=== PATIENT | female | born 1950 | race African-American/Black ===

== ENCOUNTER 2019-01-04 17:55 | Emergency (ER) | payer OTHER, MEDICARE ==
[2019-01-04] MEDS ORDERED: ASPIRIN 81 MG TABLET, CHEWABLE PO ONE (19:14)
[2019-01-04 20:03] LABS: ABSOLUTE EOSINOPHILS # (AUTO) 0.1 10^3/uL (0.0-0.6); ABSOLUTE LYMPHOCYTES (AUTO) 0.6 10^3/uL (0.5-4.7); ABSOLUTE MONOCYTES (AUTO) 0.3 10^3/uL (0.1-1.4); ABSOLUTE NEUT (AUTO) 1.6 10^3/uL (1.7-8.2); BASOPHILS % (AUTO) 0.7 % (0-2); EOSINOPHILS % (AUTO) 4.3 % (0-6); HEMATOCRIT 28.6 % (36.0-47.0); HEMOGLOBIN 9.8 g/dL (12.0-15.5); LYMPHOCYTES % (AUTO) 22.6 % (13-45); MEAN CORPUSCULAR HEMOGLOBIN 32.5 pg (27.0-33.4); MEAN CORPUSCULAR HGB CONC 34.1 g/dL (32.0-36.0); MEAN CORPUSCULAR VOLUME 95 fl (80-97); MONOCYTES % (AUTO) 11.9 % (3-13); PLATELET COUNT 105 10^3/uL (150-450); SEGMENTED NEUTROPHILS % (AUTO) 60.5 % (42-78); TOTAL CELLS COUNTED % (AUTO) 100 %; WHITE BLOOD COUNT 2.6 10^3/uL (4.0-10.5)
--- NOTE | 2019-01-04 20:05 | ER Document Report ---
Entered by AGUSTÍN LAURENT SCRIBE 01/04/192002 Acting as scribe for:LILIYA LABOY DO ED Medical Screen (RME) - General Chief Complaint: Leg Swelling Stated Complaint: LEG SWELLING Time Seen by Provider: 01/04/19 19:07 Mode of Arrival: Wheelchair Information source: Patient Notes: Patient is a 68 year old female presenting to the emergency department complaining of lower extremity swelling onset approximately 1 week ago. Patient states she has a history of Hepatitis C and subsequent liver failure and fluid overload. Patient also complains of a cough and intermittent chest pain. States she has had ascites removed from her abdomen in the past. Denies any his tory of congestive heart failure. I have greeted and performed a rapid initial assessment of this patient. A comprehensive ED assessment and evaluation of the patient, analysis of test results and completion of the medical decision making process will be conducted by additional ED providers. GENERAL: Alert, interacts well. No acute distress. HEAD: Normocephalic, Atraumatic. EYES: Pupils equal, round, and reactive to light. EOMI. ENT: Oral mucosa moist, tongue midline. NECK: Full range of motion. Supple. Trachea midline. LUNGS: Clear to auscultation bilaterally, no wheezes, rales, or rhonchi. No respiratory distress. HEART: Regular rate and rhythm. 3 out of 6 systolic murmur. No gallops or rubs. ABDOMEN: Soft, non-tender.Stretch sánchez on abdomen, no caput medusa. Non- distended. Bowel sounds present in all 4 quadrants. EXTREMITIES: Moves all four extremities spontaneously. 2+ pitting edema to the levels of the knee. PSYCH: Normal affect, normal mood. TRAVEL OUTSIDE OF THE [place] IN LAST 30 DAYS: No - Related Data Allergies/Adverse Reactions: cephalexin [From Keflex] Allergy (Verified 01/04/19 17:58) furosemide [From Lasix] Allergy (Verified 01/04/19 17:58) Past Medical History - Social History Chew tobacco use (# tins/day): No Frequency of alcohol use: None Drug Abuse: None Neurological Medical History: Reports: Hx Seizures Renal/ Medical History: Denies: Hx Peritoneal Dialysis Past Surgical History: Reports: Hx Breast Surgery - reduction, Hx Hysterectomy Physical Exam - Vital signs Vitals: Temp Pulse Resp BP Pulse Ox 99.5 F 93 16 144/65 H 98 01/04/19 18:01 01/04/19 18:01 01/04/19 18:01 01/04/19 18:01 01/04/19 18:01 Course - Vital Signs Vital signs: Temp Pulse Resp BP Pulse Ox 99.5 F 93 16 144/65 H 98 01/04/19 18:01 01/04/19 18:01 01/04/19 18:01 01/04/19 18:01 01/04/19 18:01 - Laboratory Result Diagrams: 01/04/19 19:47 01/04/19 19:47 I personally performed the services described in the documentation, reviewed and edited the documentation which was dictated to the scribe in my presence, and it accurately records my words and actions.
[2019-01-04 20:09] LABS: INTERNATIONAL RATION (INR) 1.06; PARTIAL THROMBOPLASTIN TIME 34.9 SEC (23.5-35.8); PROTHROMBIN TIME 14.3 SEC (11.4-15.4)
[2019-01-04 20:20] LABS: ALANINE AMINOTRANSFERASE 26 U/L (9-52); ALBUMIN 3.7 g/dL (3.5-5.0); ALKALINE PHOSPHATASE 139 U/L (38-126); ANION GAP 9 (5-19); ASPARTATE AMINO TRANSFERASE 61 U/L (14-36); BILIRUBIN,DIRECT 0.3 mg/dL (0.0-0.4); BILIRUBIN,TOTAL 0.7 mg/dL (0.2-1.3); BLOOD UREA NITROGEN 15 mg/dL (7-20); CALCIUM 9.7 mg/dL (8.4-10.2); CARBON DIOXIDE 27 mmol/L (22-30); CHLORIDE 105 mmol/L (98-107); CREATINE KINASE 115 U/L (30-135); GLUCOSE 195 mg/dL (75-110); POTASSIUM 4.2 mmol/L (3.6-5.0); SODIUM 140.9 mmol/L (137-145)
[2019-01-04 20:32] LABS: CREATINE KINASE MB 0.52 ng/mL (<4.55); NT PRO BNP 336 pg/mL (5-900)
[2019-01-04 20:39] LABS: TROPONIN I < 0.012 ng/mL
--- NOTE | 2019-01-04 21:00 | RADIOLOGY REPORT (SQ) ---
XR CHEST 1 VIEW HISTORY: leg edema, mild SOB. COMPARISON: None. FINDINGS: Query cardiomegaly with mild pulmonary vascular congestion. No large pleural effusions or discernible pneumothorax. The osseous structures are intact. IMPRESSION: Pulmonary edema without pleural effusions.
[2019-01-04] MEDS ORDERED: FUROSEMIDE 40 MG TABLET PO ONE (22:27)
[2019-01-04] MEDS ORDERED: RISPERIDONE 1 MG TABLET PO ONE (22:27)
--- NOTE | 2019-01-04 22:34 | ER Document Report ---
ED General - General Chief Complaint: Leg Swelling Stated Complaint: LEG SWELLING Time Seen by Provider: 01/04/19 19:07 Mode of Arrival: Wheelchair Notes: Patient is a 68-year-old female with a past medical history of bilateral lower extremity edema, hepatitis C, report of possible schizophrenia who presents with his sister for multiple concerns. The history is provided by the patient and her sister is quite different from the triage assessment. They report that the primary reason they have come to the emergency department tonight is because the patient has run out of her risperidone 1 mg twice daily. The patient was recently removed from a nursing facility outside of [facility] as the patient was being treated and kept at that facility apparently due to mental incompetence secondary to schizophrenia, a diagnosis that both the patient and sister deny. Apparently the patient requested that her sister come get her released from the nursing facility and this just occurred several days ago. The sister brought the patient back here to [place] and the patient has not yet been able to established care. Sister states that "when they discharged her from the nursing facility they told me to keep her on her medications and she would be okay so that is why brought her in tonight because I did not want her to run out of these medications". Her sister also relates a concern that the patient has had some swelling in her legs although notes that it is not new or different relative to when she first picked her up from the nursing facility. Patient does take furosemide 20 mg twice daily. No missed doses. The patient does not have any history of CHF or chronic kidney disease. Has a history of hepatitis C but denies any history of liver cirrhosis or failure. Patient denies any chest pain to me although it was noted in triage that she had complained of chest pain. When I confront the patient about this she denies the claim again stating she does not have chest pain. She also denies any significant shortness of breath although states that sometimes when she exerts herself she "becomes winded". Denies any current symptoms at the time of my assessment. TRAVEL OUTSIDE OF THE [place] IN LAST 30 DAYS: No - Related Data Allergies/Adverse Reactions: cephalexin [From Keflex] Allergy (Verified 01/04/19 17:58) Past Medical History - General Information source: Patient - Social History Smoking Status: Never Smoker Chew tobacco use (# tins/day): No Frequency of alcohol use: None Drug Abuse: None Lives with: Spouse/Significant other Family History: Reviewed & Not Pertinent Patient has suicidal ideation: No Patient has homicidal ideation: No Neurological Medical History: Reports: Hx Seizures Renal/ Medical History: Denies: Hx Peritoneal Dialysis Past Surgical History: Reports: Hx Breast Surgery - reduction, Hx Hysterectomy Review of Systems - Review of Systems Notes: Constitutional: Negative for fever. HENT: Negative for sore throat. Eyes: Negative for visual changes. Cardiovascular: Negative for chest pain. Respiratory: Positive for shortness of breath. Gastrointestinal: Negative for abdominal pain, vomiting or diarrhea. Genitourinary: Negative for dysuria. Musculoskeletal: Positive for bilateral lower extremity edema Skin: Negative for rash. Neurological: Negative for headaches, weakness or numbness. 10 point ROS negative except as marked above and in HPI. Physical Exam - Vital signs Vitals: Temp Pulse Resp BP Pulse Ox 99.5 F 93 16 144/65 H 98 01/04/19 18:01 01/04/19 18:01 01/04/19 18:01 01/04/19 18:01 01/04/19 18:01 Interpretation: Hypertensive Notes: PHYSICAL EXAMINATION: GENERAL: Well-appearing, well-nourished and in no acute distress. HEAD: Atraumatic, normocephalic. EYES: Pupils equal round and reactive to light, extraocular movements intact, sclera anicteric, conjunctiva are normal. ENT: nares patent, oropharynx clear without exudates. Moist mucous membranes. NECK: Normal range of motion, supple without lymphadenopathy LUNGS: Breath sounds clear to auscultation bilaterally and equal. No wheezes rales or rhonchi. HEART: Regular rate and rhythm without murmurs ABDOMEN: Soft, nontender, normoactive bowel sounds. No guarding, no rebound. No masses appreciated. EXTREMITIES: Normal range of motion, 1+ pitting edema in the bilateral lower extremities that is equal and symmetric. No cyanosis. NEUROLOGICAL: No focal neurological deficits. Moves all extremities spontaneously and on command. PSYCH: Normal mood, normal affect. SKIN: Warm, Dry, normal turgor, no rashes or lesions noted. Course - Re-evaluation Re-evalutation: 01/05/19 03:38 Patient presents with a primary concern of needing medication refills. The patient and her sister at the bedside are clear to state that this is the main reason they came to the ER is because they do not yet have a primary care physician and are concerned that she has run out of both the lorazepam and risperidone. They report that the shortness of breath and lower extremity edema complaints are chronic and they thought they had mentioned them while they are here. Of note this is quite different from the triage assessment. I did spend an extensive period of time with the patient and her family going over everything that was discussed both in triage and refocusing on the initial visit purpose. I have discontinued the patient's lorazepam as she is above 65 years of age and I do not believe should be to be taken daily, scheduled benzodiazepines. I have continued her risperidone although given the family's report that she was allegedly diagnosed with schizophrenia within the past several years and had a skeptical of this diagnosis vertically that this would be an atypical age for this to be diagnosed. Patient had no history of schizophrenia as a younger individual. In regards the patient's lower extremity edema and trace pulmonary edema on chest x-ray, she is saturating 100% on room air. No tachycardia, no tachypnea. BNP is normal. I have placed the patient in compression stockings and have doubled her Lasix to 40 mill grams twice daily for the next 1 week. No indication for hospitalization at this point. Patient adamantly denies chest pain to me. At this time will discharge with return precautions and follow-up recommendations. Verbal discharge instructions given a the bedside and opportunity for questions given. Medication warnings reviewed. Patient is in agreement with this plan and has verbalized understanding of return precautions and the need for primary care follow-up in the next 24-72 hours. - Vital Signs Vital signs: Temp Pulse Resp BP Pulse Ox 99.5 F 93 16 136/65 H 97 01/04/19 18:01 01/04/19 18:01 01/04/19 23:01 01/04/19 23:01 01/04/19 23:01 - Laboratory Result Diagrams: 01/04/19 19:47 01/04/19 19:47 Laboratory results interpreted by me: 01/04/19 01/04/19 01/04/19 19:47 19:47 19:47 WBC 2.6 L RBC 3.00 L Hgb 9.8 L Hct 28.6 L RDW 16.0 H Plt Count 105 L Absolute Neutrophils 1.6 L Est GFR (Non-Af Amer) 54 L Glucose 195 H AST 61 H Alkaline Phosphatase 139 H Ammonia 45.6 H - Diagnostic Test Radiology reviewed: Image reviewed, Reports reviewed Radiology results interpreted by me: 01/05/19 03:40 Chest x-ray: Trace pulmonary edema bilaterally. - EKG Interpretation by Me Additional EKG results interpreted by me: 01/05/19 03:40 Sinus rhythm, rate 81. No ST elevations or depressions. QTC is 474. Discharge - Discharge Clinical Impression: Bilateral lower extremity edema, Medication refill Pulmonary edema Qualifiers: Chronicity: acute Qualified Code(s): J81.0 - Acute pulmonary edema Condition: Good Disposition: HOME, SELF-CARE Additional Instructions: Please continue your medications as prescribed with the exception of Lasix which I would like you to increase to 40 mg twice daily for the next 1 week. Please then return to Lasix 20 mg twice daily as previously prescribed. You need to establish care with a primary care physician as we discussed. Please return to the emergency permit immediately if you develop worsening of the swelling in your legs, worsening shortness of breath, chest discomfort, pass out, or have any other symptoms that are worrisome to you. Prescriptions: Furosemide [Lasix 20 mg Tablet] 40 mg PO BID #28 tablet Risperidone [Risperdal] 1 mg PO BID #60 tablet
[2019-01-04 23:06] VITALS: BP 136/65
--- NOTE | 2019-01-05 01:18 | EKG REPORT ---
SEVERITY:- NORMAL ECG - SINUS RHYTHM : Confirmed by: Mera Curtis MD 05-Jan-2019 01:17:44
== END 2019-01-04 23:35 | disposition home or self-care (01) ==
LOC: ER 17:55
DX: Z76.0 Encounter for issue of repeat prescription (principal); J81.0 Acute pulmonary edema; Z79.899 Other long term (current) drug therapy
CPT/HCPCS: 36415; 71045; 80053; 82140; 82550; 82553; 83880; 84484; 85025; 85610; 85730; 93005; 93010; 99284

== ENCOUNTER 2019-01-11 15:21 | Emergency (ER) | payer OTHER, MEDICARE ==
--- NOTE | 2019-01-11 16:48 | ER Document Report ---
ED Medical Screen (RME) - General Chief Complaint: Swelling of Lower Extremity Stated Complaint: SLURRED SPEECH Time Seen by Provider: 01/11/19 16:37 Notes: Patient is a 68-year-old female that presents to the emergency department for chief complaint of slurred speech, facial droop and leg swelling. Patient reports that the slurred speech and facial droop occurred about a week ago, and has been somewhat progressively worse since that time. ROS: Other than noted above, the 12 point review of systems was reviewed with the patient and were negative, all pertinent findings are included in the HPI. PHYSICAL EXAMINATION: Vital signs reviewed. GENERAL: Elderly female, in no apparent distress at this time HEAD: Atraumatic, normocephalic. EYES: Pupils equal round extraocular movements intact, conjunctiva are normal. ENT: Nares patent NECK: Normal range of motion CV: Heart regular rate and rhythm LUNGS: No respiratory distress Musculoskeletal: Good ROM NEUROLOGICAL: Slurred speech, slight left-sided facial droop, and decreased sensation on the left side of the face compared to the right. PSYCH: Normal mood, normal affect. MDM: Patient seen and examined for rapid initial assessment. Vital signs reviewed. A comprehensive ED assessment and evaluation of the patient, analysis of test results and completion of the medical decision making process will be conducted by additional ED providers. *Note is created using voice recognition software and may contain spelling, syntax or grammatical errors. TRAVEL OUTSIDE OF THE [place] IN LAST 30 DAYS: No - Related Data Allergies/Adverse Reactions: cephalexin [From Keflex] Allergy (Verified 01/04/19 17:58) Past Medical History - Social History Frequency of alcohol use: None Drug Abuse: None - Past Medical History Cardiac Medical History: Reports: Hx Hypercholesterolemia Neurological Medical History: Reports: Hx Seizures Renal/ Medical History: Denies: Hx Peritoneal Dialysis Past Surgical History: Reports: Hx Breast Surgery - reduction, Hx Hysterectomy, Hx Orthopedic Surgery - ankle Physical Exam - Vital signs Vitals: Temp Pulse Resp BP Pulse Ox 98.7 F 88 20 161/73 H 96 01/11/19 15:37 01/11/19 15:37 01/11/19 15:37 01/11/19 15:37 01/11/19 15:37 Course - Vital Signs Vital signs: Temp Pulse Resp BP Pulse Ox 98.7 F 88 20 161/73 H 96 01/11/19 15:37 01/11/19 15:37 01/11/19 15:37 01/11/19 15:37 01/11/19 15:37
[2019-01-11 17:48] LABS: ABSOLUTE EOSINOPHILS # (AUTO) 0.1 10^3/uL (0.0-0.6); ABSOLUTE LYMPHOCYTES (AUTO) 0.6 10^3/uL (0.5-4.7); ABSOLUTE MONOCYTES (AUTO) 0.4 10^3/uL (0.1-1.4); BASOPHILS % (AUTO) 0.7 % (0-2); EOSINOPHILS % (AUTO) 4.7 % (0-6); HEMATOCRIT 27.8 % (36.0-47.0); HEMOGLOBIN 9.4 g/dL (12.0-15.5); LYMPHOCYTES % (AUTO) 19.3 % (13-45); MEAN CORPUSCULAR HEMOGLOBIN 32.9 pg (27.0-33.4); MEAN CORPUSCULAR VOLUME 97 fl (80-97); MONOCYTES % (AUTO) 12.4 % (3-13); PLATELET COUNT 103 10^3/uL (150-450); RED BLOOD COUNT 2.87 10^6/uL (3.72-5.28); RED CELL DISTRIBUTION WIDTH 16.3 % (11.5-14.0); SEGMENTED NEUTROPHILS % (AUTO) 62.9 % (42-78); TOTAL CELLS COUNTED % (AUTO) 100 %; WHITE BLOOD COUNT 3.1 10^3/uL (4.0-10.5)
--- NOTE | 2019-01-11 17:48 | RADIOLOGY REPORT (SQ) ---
EXAM DESCRIPTION: CHEST SINGLE VIEW COMPLETED DATE/TIME: 01/11/2019 5:39 pm REASON FOR STUDY: shortness of breath COMPARISON: 01/04/2018 EXAM PARAMETERS: NUMBER OF VIEWS: One view. TECHNIQUE: Single frontal radiographic view of the chest acquired. RADIATION DOSE: NA LIMITATIONS: None. FINDINGS: LUNGS AND PLEURA: Lungs are hyperaerated. Linear atelectasis versus scarring of the left lingula. No focal consolidation, pleural effusion, or pneumothorax. MEDIASTINUM AND HILAR STRUCTURES: No masses. Contour normal. HEART AND VASCULAR STRUCTURES: Heart normal in size. Central pulmonary vasculature is accentuated du e to low lung volumes. BONES: No acute findings. HARDWARE: None in the chest. OTHER: No other significant finding. IMPRESSION: NO ACUTE RADIOGRAPHIC FINDING IN THE CHEST. TECHNICAL DOCUMENTATION: JOB ID: [id number] [employer]- All Rights Reserved Reading location - IP/workstation name: [email or web address]
[2019-01-11 18:05] LABS: ALANINE AMINOTRANSFERASE 24 U/L (9-52); ALBUMIN 3.6 g/dL (3.5-5.0); ALKALINE PHOSPHATASE 126 U/L (38-126); ANION GAP 6 (5-19); ASPARTATE AMINO TRANSFERASE 61 U/L (14-36); BILIRUBIN,DIRECT 0.2 mg/dL (0.0-0.4); BILIRUBIN,TOTAL 0.8 mg/dL (0.2-1.3); BLOOD UREA NITROGEN 17 mg/dL (7-20); CALCIUM 9.6 mg/dL (8.4-10.2); CARBON DIOXIDE 27 mmol/L (22-30); CHLORIDE 107 mmol/L (98-107); GLUCOSE 199 mg/dL (75-110); POTASSIUM 4.2 mmol/L (3.6-5.0); SODIUM 139.5 mmol/L (137-145); TOTAL PROTEIN 8.1 g/dL (6.3-8.2)
--- NOTE | 2019-01-11 18:07 | RADIOLOGY REPORT (SQ) ---
EXAM DESCRIPTION: CT HEAD WITHOUT COMPLETED DATE/TIME: 01/11/2019 5:56 pm REASON FOR STUDY: slurred speech, facial droop on left COMPARISON: None. TECHNIQUE: Axial images acquired through the brain without intravenous contrast. Images reviewed wi th bone, brain and subdural windows. Additional sagittal and coronal reconstructions were generated. Images stored on PACS. All CT scanners at this facility use dose modulation, iterative reconstruction, and/or weight based d osing when appropriate to reduce radiation dose to as low as reasonably achievable (ALARA). [facility]: Dose Right [facility]: CareDose [facility]: Dose Right [facility]: Teradose 4D [facility]: Smart Ideaxis RADIATION DOSE: CT Rad equipment meets quality standard of care and radiation dose reduction techniq ues were employed. CTDIvol: 53.2 mGy. DLP: 991 mGy-cm. mGy. LIMITATIONS: None. FINDINGS: VENTRICLES: Normal size and contour. CEREBRUM: No masses. No hemorrhage. No midline shift. No evidence for acute infarction. Normal gra y/white matter differentiation. No areas of low density in the white matter. Physiologic calcificati ons of the basal ganglia. CEREBELLUM: No masses. No hemorrhage. No alteration of density. No evidence for acute infarction. EXTRAAXIAL SPACES: No fluid collections. No masses. ORBITS AND GLOBE: No intra- or extraconal masses. Normal contour of globe without masses. CALVARIUM: No fracture. PARANASAL SINUSES: Mucoperiosteal thickening of the left maxillary sinus. SOFT TISSUES: No mass or hematoma. OTHER: No other significant finding. IMPRESSION: 1. No acute intracranial findings. 2. Paranasal sinus disease. EVIDENCE OF ACUTE STROKE: NO. COMMENT: Quality ID # [id number]: Final reports with documentation of one or more dose reduction techniques (e.g., Automated exposure control, adjustment of the mA and/or kV according to patient size, use of iterative reconstruction technique) TECHNICAL DOCUMENTATION: JOB ID: [id number] [email or web address] All Rights Reserved Reading location - IP/workstation name: [email or web address]
[2019-01-11 18:18] LABS: NT PRO BNP 402 pg/mL (5-900)
[2019-01-11 18:25] LABS: TROPONIN I < 0.012 ng/mL
--- NOTE | 2019-01-11 19:39 | ER Document Report ---
ED General - General Chief Complaint: Swelling of Lower Extremity Stated Complaint: SLURRED SPEECH Time Seen by Provider: 01/11/19 16:37 Notes: Patient is a 68-year-old female that comes to the emergency department for chief complaint of slurred speech and left-sided facial droop. Sister is here with patient, they state they started noticing this approximately 1 week ago, she states that patient is also had worsened slurring of speech that has been persistent since they started noticing. No focal weakness, no visual changes, no imbalance, no other complaints in regards to this. Patient has general complaints otherwise reporting chronic lower extremity swelling and intermittent lower back pain. Denies head injury, fever, chest pain, shortness of breath. Past medical history of hepatitis C, hyperlipidemia, possible schizophrenia that she takes risperidone for but she has been on the risperidone and for a long time per patient and sister. Strangely this appears to have been diagnosed late in life. TRAVEL OUTSIDE OF THE [place] IN LAST 30 DAYS: No - Related Data Allergies/Adverse Reactions: cephalexin [From Keflex] Allergy (Verified 01/04/19 17:58) cillins Allergy (Severe, Uncoded 01/11/19 19:52) Past Medical History - General Information source: Patient, Relative - Sister - Social History Smoking Status: Former Smoker Frequency of alcohol use: None Drug Abuse: None Lives with: Family Family History: Reviewed & Not Pertinent Patient has suicidal ideation: No Patient has homicidal ideation: No - Past Medical History Cardiac Medical History: Reports: Hx Hypercholesterolemia Neurological Medical History: Reports: Hx Seizures Renal/ Medical History: Denies: Hx Peritoneal Dialysis Past Surgical History: Reports: Hx Breast Surgery - reduction, Hx Hysterectomy, Hx Orthopedic Surgery - ankle Review of Systems - Review of Systems Constitutional: No symptoms reported EENT: No symptoms reported Cardiovascular: No symptoms reported Respiratory: No symptoms reported Gastrointestinal: No symptoms reported Genitourinary: No symptoms reported Female Genitourinary: No symptoms reported Musculoskeletal: No symptoms reported Skin: No symptoms reported Hematologic/Lymphatic: No symptoms reported Neurological/Psychological: See HPI Physical Exam - Vital signs Vitals: Temp Pulse Resp BP Pulse Ox 98.7 F 88 20 161/73 H 96 01/11/19 15:37 01/11/19 15:37 01/11/19 15:37 01/11/19 15:37 02/24/19 15:37 - Notes Notes: GENERAL: Alert, interacts well. No acute distress. HEAD: Normocephalic, atraumatic. EYES: Pupils equal, round, and reactive to light. Extraocular movements intact. ENT: Oral mucosa moist, tongue midline. Oropharynx unremarkable. Airway patent. Nares patent, no nasal septal hematoma, TM's intact. NECK: Full range of motion. Supple. Trachea midline. LUNGS: Clear to auscultation bilaterally, no wheezes, rales, or rhonchi. No respiratory distress. HEART: Regular rate and rhythm. No murmur ABDOMEN: Soft, non-tender. Non-distended. Bowel sounds present in all 4 quadrants. GENITOURINARY: Deferred EXTREMITIES: Moves all 4 extremities spontaneously. Mild edema bilaterally, normal radial and dorsalis pedis pulses bilaterally. No cyanosis. BACK: no cervical, thoracic, lumbar midline tenderness. No saddle anesthesia, normal distal neurovascular exam. NEUROLOGICAL: Alert, oriented. Intermittently slightly slurred speech. Questionable mild left-sided facial droop [cranial nerves II through XII grossly intact]. PSYCH: Normal affect, normal mood. SKIN: Warm, dry, normal turgor. No rashes or lesions noted. Course - Re-evaluation Re-evalutation: EKG unremarkable, chest x-ray unremarkable, his anemia, this is reportedly chronic, chemistry generally unremarkable as well. Urinalysis unremarkable. CAT scan of the head reviewed and normal. Troponin is negative. On evaluation patient does have some difficulty getting words out occasionally, occasionally seems to be slurring some words but this is very minimal. They both state that this is more noticeable over the past weekend and deny it being present before that. Subtle questionable droop to the left side of the mouth, no numbness, no forehead sparing, exam does not suggest Traore's palsy. Discussed with patient and sister. They are hoping for an MRI to rule out CVA as a cause of patient's symptoms. I feel it is unlikely based on the 1 week of symptoms being present, however since this is possible and patient symptoms are reportedly new, MRI was ordered. I discussed with Dr. Mondragon. MRI is negative for acute findings, shows left maxillary sinusitis. Patient does not appear to have a sinus infection on exam, she does have some congestion and drainage, given Flonase for this instead. Discussed different possibilities including risperidone as a possible cause of patient's symptoms. However patient and sister both state that off of the risperidone patient was extremely alvarado and difficult and they both state that they will follow-up with her primary care to have this adjusted. No adjustments were given at this time. Patient remains well-appearing and talkative on reevaluation, vital signs unremarkable, discussed follow-up and return precautions, they state under standing and agreement, stable at time of discharge. - Vital Signs Vital signs: Temp Pulse Resp BP Pulse Ox 98.7 F 80 20 120/64 99 01/11/19 15:37 01/11/19 19:30 01/11/19 21:01 01/11/19 21:01 01/11/19 21:01 - Laboratory Result Diagrams: 01/11/19 17:27 01/11/19 17:27 Laboratory results interpreted by me: 01/11/19 01/11/19 17:27 17:27 WBC 3.1 L RBC 2.87 L Hgb 9.4 L Hct 27.8 L RDW 16.3 H Plt Count 103 L Glucose 199 H AST 61 H Discharge - Discharge Clinical Impression: Slurred speech, Swelling of both lower extremities, Sinus congestion Condition: Stable Disposition: HOME, SELF-CARE Additional Instructions: The MRI of your brain shows some sinus inflammation in the left maxillary sinus but the brain does not show a stroke or concerning finding. Your remaining workup does not show any concerning findings, you do have some ongoing anemia, your liver function tests are not concerningly elevated. The risperidone may be responsible for your symptoms. Follow-up closely with primary care to consider adjusting medicine and alternatives. The Flonase can help with the sinus congestion and drainage, you have been prescribed this. Return to the emergency department for any concerning symptoms including severe headache, fever, or any other concerning or worsening symptoms. Prescriptions: Fluticasone Propionate [Flonase Nasal Rumsey 50 Mcg/Rumsey 16 gm] 1 spray NASL Q12 #1 inhaler
--- NOTE | 2019-01-11 20:47 | RADIOLOGY REPORT (SQ) ---
EXAM DESCRIPTION: MR BRAIN WITHOUT IV CONTRAST COMPLETED DATE/TME: 01/11/2019 19:33 CLINICAL HISTORY: 68 years, Female, slurred speach, left facial droop COMPARISON: CT brain from today's date TECHNIQUE: [id number] Images stored on PACS. LIMITATIONS: None. FINDINGS: Sagittal midline anatomic structures demonstrate an unremarkable appearance to the pituitary and suprasellar regions. Mucosal thickening with air-fluid level of the left maxillary sinus. Normal flow void in visualized intracranial vessels. The visualized cranial nerve complex these are unremarkable. No intra or extra-axial hemorrhage. Diffusion-weighted images are normal without evidence for acute infarct. There is no mass or midline shift. Mild diffuse atrophy. Scattered foci of increased FLAIR/T2 white matter signal in the periventricular and subcortical regions consistent with sequelae of minor small vessel ischemic change. IMPRESSION: Mild atrophy and minor small vessel ischemic change. Left maxillary sinusitis copyright 2010 [employer]- All Rights Reserved
[2019-01-11 21:27] LABS: APPEARANCE,URINE CLEAR; BILIRUBIN,URINE NEGATIVE (NEGATIVE); COLOR,URINE YELLOW; GLUCOSE, URINE NEGATIVE (NEGATIVE); KETONES,URINE NEGATIVE (NEGATIVE); LEUKOCYTE ESTERASE,URINE NEGATIVE (NEGATIVE); NITRITE,URINE NEGATIVE (NEGATIVE); PROTEIN,URINE NEGATIVE (NEGATIVE); URINE SPECIFIC GRAVITY 1.009; UROBILINOGEN,URINE NEGATIVE mg/dL (<2.0)
[2019-01-11 22:08] VITALS: BP 120/64
--- NOTE | 2019-01-11 22:28 | EKG REPORT ---
SEVERITY:- NORMAL ECG - SINUS RHYTHM : Confirmed by: Scar Tello MD 11-Jan-2019 22:27:31
== END 2019-01-11 22:08 | disposition home or self-care (01) ==
LOC: ER 15:21
DX: R47.81 Slurred speech (principal); R60.0 Localized edema; J32.0 Chronic maxillary sinusitis; R09.81 Nasal congestion; D64.9 Anemia, unspecified; M54.5 Low back pain; Z79.899 Other long term (current) drug therapy; Z88.1 Allergy status to other antibiotic agents; Z88.0 Allergy status to penicillin; Z87.891 Personal history of nicotine dependence
CPT/HCPCS: 36415; 70450; 70551; 71045; 80053; 81001; 83880; 84484; 85025; 93005; 93010; 99285